=== PATIENT | male | born 1975 | race Caucasian/White ===

== ENCOUNTER 2016-08-17 16:12 | Outpatient (CLI) | payer OTHER ==
--- NOTE | 2016-08-18 07:16 | Diagnostic Imaging Report ---
MONI MARTINEZ [facility] [id number] [facility] [address] [address] Report Submission Date: Aug 17, 2016 4:53:50 PM INSURANCE [employer]ATER Patient Study Name: KARYNA HAMMONDS Date: Aug 17, 2016 4:25:40 PM INSURANCE RATER Modality Type: CR Gender: M Description: LOWER EXTREMITY : 77 Institution: [facility] Physician: MONI MARTINEZ Left ankle 3 views Clinical history pain Technique AP lateral oblique Findings: The ankle joint is preserved. Bony density lateral to the talus may represent a avulsion fractures of indeterminate age. The distal tibia is intact. The talus is intact. There is inferior calcaneal spur. Impression: Small bony densities beneath the lateral malleolus consistent with a avulsion fractures of indeterminate age Electronically signed on Aug 17, 2016 4:53:50 PM INSURANCE RATER by: Tutu GANDARA
== END 2016-08-17 16:13 ==
LOC: RAD 16:12
PROVIDERS: ATTEND Physician Assistant
DX: M25.572 Pain in left ankle and joints of left foot (principal); S99.912A Unspecified injury of left ankle, initial encounter
CPT/HCPCS: 73610

== ENCOUNTER 2016-09-14 09:10 | Outpatient (CLI) | payer OTHER ==
--- NOTE | 2016-09-15 18:36 | Diagnostic Imaging Report ---
MONI MARTINEZ [facility] [id number] [facility] [address] [address] Report Submission Date: Sep 14, 2016 3:21:24 PM CDT Patient Study Name: KARYNA HAMMONDS Date: Sep 14, 2016 9:19:26 AM CDT Modality Type: CR Gender: M Description: LOWER EXTREMITY : 77 Institution: [facility] Physician: MONI MARTINEZ 3 views left ankle Comparison: August 24, 2016 Technique AP lateral oblique Findings: The nondisplaced fracture the lateral malleolus is unchanged in position and alignment. Fracture line remains visible. Medial malleolus is intact. Inferior calcaneal spur is present. There is anterior ankle marginal spur. Impression: Unchanged position and alignment of the nondisplaced lateral malleolus Electronically signed on Sep 14, 2016 3:21:24 PM CDT by: Tutu GANDARA
== END 2016-09-14 09:11 ==
LOC: RAD 09:10
PROVIDERS: ATTEND Physician Assistant
DX: S82.892A Other fracture of left lower leg, initial encounter for closed fracture (principal); X58.XXXA Exposure to other specified factors, initial encounter; Y93.9 Activity, unspecified; Y99.9 Unspecified external cause status
CPT/HCPCS: 73610

== ENCOUNTER 2016-09-28 09:20 | Outpatient (CLI) | payer OTHER ==
--- NOTE | 2016-09-28 16:12 | Diagnostic Imaging Report ---
[facility] [id number] [address] Report Submission Date: Sep 28, 2016 3:30:25 PM CDT Patient Study Name: KARYNA HAMMONDS Date: Sep 28, 2016 9:35:00 AM CDT Modality Type: CR Gender: M Description: LOWER EXTREMITY : 77 Institution: [facility] Physician: MONI MARTINEZ Left ankle - three views Clinical history: Follow-up fracture. Findings: Examination of the left ankle in AP, lateral and oblique views demonstrates an essentially nondisplaced distal fibular fracture. There is mild sclerosis at the fracture site consistent with healing. Ankle mortise is anatomic. Calcaneal spur is present on lateral view at the site of insertion of the plantar aponeurosis. There is no acute fracture. Impression: 1. Healing fracture of the distal fibula. Electronically signed on Sep 28, 2016 3:30:25 PM CDT by: Andrea GANDARA
== END 2016-09-28 09:21 ==
LOC: RAD 09:20
PROVIDERS: ATTEND Physician Assistant
DX: S82.892D Other fracture of left lower leg, subsequent encounter for closed fracture with routine healing (principal); X58.XXXD Exposure to other specified factors, subsequent encounter; Y93.9 Activity, unspecified; Y99.9 Unspecified external cause status
CPT/HCPCS: 73610